=== PATIENT | female | born 1995 | race Two or more races ===

== ENCOUNTER 2021-10-14 11:54 | Day surgery (SDC) | payer OTHER ==
[~2021-10-14] VITALS: Ht 157.5 cm; Wt 53.5 kg
[2021-10-14] MEDS ORDERED: PRENATAL + DHA1 EAC1 (12:31)
== END 2021-10-14 21:40 | disposition home or self-care (01) ==
LOC: ER 11:54 → CIR.AMB 17:39
PROVIDERS: ATTEND Student in an Organized Health Care Education/Training Program
DX: N93.9 Abnormal uterine and vaginal bleeding, unspecified (principal); Z88.6 Allergy status to analgesic agent; Z98.890 Other specified postprocedural states; Z20.822 Contact with and (suspected) exposure to COVID-19